=== PATIENT | female | born 1985 | race Caucasian/White ===

== ENCOUNTER 2023-07-11 07:58 | Day surgery (SDC) | payer OTHER ==
[2023-07-08 10:14] LABS: BILIRUBIN,URINE NEGATIVE (Neg); CLARITY,URINE TURBID (Clear); COLOR,URINE YELLOW (Yellow); GLUCOSE, URINE NEGATIVE (Neg); KETONES,URINE NEGATIVE (Neg); LEUKOCYTE ESTERASE ,URINE MODERATE (Neg); NITRITES, URINE NEGATIVE (Neg); OCCULT BLOOD,URINE NEGATIVE (Neg); PH,URINE 5.5 (4.8-8.0); PROTEIN,URINE NEGATIVE (Neg); UROBILINOGEN,URINE 0.2 E.U/dL (0.2-1.0)
[2023-07-08 10:15] LABS: BASOPHILS # (AUTO) 0.1 X10'3 (0-0.2); BASOPHILS % (AUTO) 0.9 % (0-1); EOSINOPHILS # (AUTO) 0.1 X10'3 (0-0.9); EOSINOPHILS % (AUTO) 1.5 % (0-6); LYMPHOCYTES # (AUTO) 2.1 X10'3 (1.1-4.8); LYMPHOCYTES % (AUTO) 26.9 % (21-51); MEAN CORPUSCULAR HEMOGLOBIN 31.2 PG (27.0-31.0); MEAN CORPUSCULAR VOLUME 91.9 FL (78-98); MEAN PLATELET VOLUME 7.7 FL (7.4-10.4); MONOCYTES # (AUTO) 0.6 X10'3 (0-0.9); MONOCYTES % (AUTO) 8.2 % (2-12); NEUTROPHILS # (AUTO) 4.9 X10'3 (1.8-7.7); NEUTROPHILS % (AUTO) 62.5 % (42-75); PRE OP HEMATOCRIT 42.1 % (35.0-45.0); PRE OP HEMOGLOBIN 14.3 g/dL (12.0-16.0); PRE OP PLATELET COUNT 335 X10'3 (140-440); PRE OP WHITE BLOOD COUNT 7.9 10'3 (4.8-10.8); RED BLOOD COUNT 4.58 X10'6 (4.20-5.60); RED CELL DISTRIBUTION WIDTH 13.2 % (11.5-14.5)
[2023-07-08 10:31] LABS: ALBUMIN 4.3 G/DL (3.4-5.0); ALBUMIN/GLOBULIN RATIO 1.1 (1.1-1.5); ALKALINE PHOSPHATASE 79 IU/L (46-116); BLOOD UREA NITROGEN 19 MG/DL (7-18); BUN/CREATININE RATIO 20.9 (10.0-20.0); CALCIUM 9.6 MG/DL (8.5-10.1); CHLORIDE 103 MMOL/L (99-107); CREATININE 0.91 MG/DL (0.40-0.90); PRE OP ALT 18 U/L (30-65); PRE OP ANION GAP 8 (8-16); PRE OP AST 14 U/L (10-37); PRE OP BILIRUB, TOTAL 0.5 MG/DL (0.0-1.0); PRE OP GLUCOSE 74 MG/DL (70-104); PRE OP POTASSIUM 4.3 MMOL/L (3.4-5.1); PRE OP SODIUM 138 MMOL/L (135-145); TOTAL CARBON DIOXIDE 27.4 MMOL/L (24-32); TOTAL PROTEIN 8.2 G/DL (6.4-8.2); eGFR 69 ML/MIN
[2023-07-08 10:50] LABS: UA COLLECTION TYPE CLN CATCH MIDSTREAM
[2023-07-08 10:52] LABS: BACTERIA,URINE 2+ /HPF (Neg); MUCUS STRANDS MODERATE /LPF (Neg); RBC,URINE NONE SEEN /HPF (0-2); SQUAMOUS EPITHELIAL CELL,UR MODERATE /LPF (FEW); WBC,URINE 50-100 /HPF (0-4)
[~2023-07-11] VITALS: Ht 170.2 cm; Wt 66.8 kg
[~2023-07-11 07:58] MED LIST: BUPIVAcaine/PF 2.5mg/ml (0.25%) 10ml vial ONE; CELE50CA PO; MAGNESIUM; bacitracin 15gm ointment TP ONE; cefazolin 2gm/D5W 100mL 100 ML IV ONE; famotidine 20mg tablet PO ONE; ringers solution, lacted 1,000 ML IV SCH
[2023-07-11 08:00] VITALS: BP 116/67; PULSE 74; PULSE 99; RESP 16; TEMP 98.5; O2SAT 99
[2023-07-11] MEDS ORDERED: fentaNYL/PF 50MCG/1 ML 2ML syringe ONE (09:56)
[2023-07-11] MEDS ORDERED: midazolam 1 mg/ML 2ml injection ONE (09:56)
[2023-07-11] MEDS ORDERED: propofol inj 20 ML IV ONE (09:59)
[2023-07-11] MEDS ORDERED: ondansetron/PF 4mg/2ml inj ONE (09:59)
[2023-07-11] MEDS ORDERED: dexamethasone sod phosphate 4mg/ml inj. ONE (09:59)
[2023-07-11] MEDS ORDERED: LIDOcaine 1%/PF 5ML 10 MG/ML VIAL ONE (09:59)
[2023-07-11] MEDS ORDERED: desflurane 240ml liquid inh. IH ONE (10:04)
[2023-07-11] MEDS ORDERED: ondansetron/PF 4mg/2ml inj IV PRN (10:20)
[2023-07-11] MEDS ORDERED: morphine 2 MG/ML inj. syringe IV PRN (10:20)
[2023-07-11] MEDS ORDERED: morphine 4 MG/ML inj SYRINge IV PRN (10:20)
[2023-07-11] MEDS ORDERED: labetalol 20mg/4ml (5mg/ml) syringe IV PRN (10:20)
[2023-07-11] MEDS ORDERED: meperidine/PF 25mg/ml syringe IV PRN ×3 (10:20)
[2023-07-11] MEDS ORDERED: acetaminophen 1,000mg/100ml IV 100 ML IV PRN (10:20)
[2023-07-11] MEDS ORDERED: ringers solution, lacted 1,000 ML IV SCH (10:20)
[2023-07-11 10:37] VITALS: BP 129/71; PULSE 102; RESP 12; O2SAT 100
--- NOTE | 2023-07-11 10:37 | NUR ---
Received from OR via [facility], accompanied by Anesthesiologist and report given by SONIA Anesthesiologist. PATIENT WAKING UP, NO S/S OF PAIN, V/S WNL, 20G TO RIGHT HAND, RIGHT FOOT MARI WRAP DRESSING W/ 4X4 C/D/I. ICE AND ELEVATE RIGHT LOWER EXTREMITY. Addendum: 07/11/23 at 1057 by Blake Hadley RN Amended: Links added.
[2023-07-11 10:40] VITALS: BP 121/69; PULSE 81; RESP 10; O2SAT 100
[2023-07-11 10:50] VITALS: BP 118/75; PULSE 89; RESP 13; O2SAT 100
[2023-07-11 11:00] VITALS: BP 109/63; PULSE 80; RESP 12; O2SAT 100
[2023-07-11 11:10] VITALS: BP 113/71; PULSE 83; RESP 14; O2SAT 99
--- NOTE | 2023-07-11 11:17 | NUR ---
ALL DISCHARGE CRITERIA HAS BEEN MET. VSS, PAIN AT A TOLERABLE LEVEL, ABLE TO SAFELY AMBULATE WITH SURGICAL BOOTS AND TRANSFER SELF. IV TAKEN OUT WITHOUT ANY COMPLICATIONS. ALL DISCHARGE INSTRUCTIONS COVERED WITH PATIENT AND ALL QUESTIONS ANSWERED. PATIENT TAKEN OUT VIA WHEELCHAIR WITH ALL BELONGINGS TO PERSONAL VEHICLE WHERE FAMILY DROVE PATIENT HOME. Addendum: 07/11/23 at 1124 by Blake Hadley RN Amended: Links added.
== END 2023-07-11 11:17 | disposition home or self-care (01) ==
LOC: PAS 07:58
PROVIDERS: ATTEND Podiatrist Foot & Ankle Surgery
DX: G57.61 Lesion of plantar nerve, right lower limb (principal); Z79.1 Long term (current) use of non-steroidal anti-inflammatories (NSAID); Z79.2 Long term (current) use of antibiotics; Z79.82 Long term (current) use of aspirin; Z79.899 Other long term (current) drug therapy; Z88.0 Allergy status to penicillin; Z88.1 Allergy status to other antibiotic agents; Z91.040 Latex allergy status; Z88.8 Allergy status to other drugs, medicaments and biological substances; Z82.49 Family history of ischemic heart disease and other diseases of the circulatory system; Z82.61 Family history of arthritis
CPT/HCPCS: 28080; 36415; 80053; 81001; 82948; 85025; 87088; A6223; J0690; J1100; J2250; J2405; J2704; J3010; J3490; J7030; J7120; Z7506; Z7512; A4215; A4618; A6449; A7000